=== PATIENT | female | born 1955 | race Caucasian/White ===

== ENCOUNTER 2023-02-21 08:33 | Emergency (ER) | payer MEDICARE, BC ==
[~2023-02-21] VITALS: Ht 165.1 cm; Wt 63.5 kg
[2023-02-21 09:05] VITALS: BP 152/90
[2023-02-21] MEDS ORDERED: LOSA50 PO (09:51)
[2023-02-21] MEDS ORDERED: HYDCHL25 PO (09:51)
== END 2023-02-21 11:03 | disposition home or self-care (01) ==
LOC: ER 08:33
DX: S01.411A Laceration without foreign body of right cheek and temporomandibular area, initial encounter (principal); W10.8XXA Fall (on) (from) other stairs and steps, initial encounter; Z88.5 Allergy status to narcotic agent; Z79.899 Other long term (current) drug therapy
CPT/HCPCS: 12013; 70150; 99283-25

== ENCOUNTER 2024-06-06 07:55 | Day surgery (SDC) | payer MEDICARE, BC ==
[~2024-06-06] VITALS: Ht 157.5 cm; Wt 64.5 kg
[2024-06-06] VITALS (14 sets, daily range): BP systolic 97–143; BP diastolic 62–98
[~2024-06-06 07:55] MED LIST: HYDCHL25 PO; LOSA50 PO; Lactated Ringer's 1,000 ML IV SCH
--- NOTE | 2024-06-06 08:27 | NUR ---
Ambulatory in Day Surgery. History, Chart, Medications and Allergies reviewed before start of procedure. Lungs clear T/O to Auscultation. Patient confirms NPO status and agrees with scheduled surgery. Pre-Op teaching done. Pt verbalizes understanding. Patient States Post-Procedure ride home has been arranged.
[2024-06-06] MEDS ORDERED: propofoL 20 ML IV ONE (08:55)
[2024-06-06] MEDS ORDERED: Midazolam HCl 1MG / ML 2ML Vial ONE (09:06)
--- NOTE | 2024-06-06 09:14 | NUR ---
06/06/24 0914 Mariano Lion CONFIRMED AND REVIEWED H&P, MEDCICATIONS, ALLERGIES, MEDICAL HISTORY, RESPIRATORY HISTORY, VITAL SIGNS, 3-LEAD EKG, CONSENTS, AND PHYSICIAN ORDERS. PATIENT CONFIRMS NPO STATUS AND AGREES WITH SCHEDULED PROCEDURE. MONITOR INTACT WITH CONTINUOUS PULSE OXIMETRY, CAPNOGRAPHY, 3-LEAD EKG, INTERMITTENT BP. SUPPLEMENTAL O2 TO BE TITRATED THROUGHOUT PROCEDURE TO MAINTAIN O2 SATURATION ABOVE 90%. PATIENT DETERMINED TO BE ASA APPROPRIATE FOR PROPOFOL SEDATION PRIOR TO START OF PROCEDURE BY DR. BLUE
--- NOTE | 2024-06-06 09:27 | NUR ---
REPORT RECEIVED FROM J CARLOS MIRANDA. VSS. PT ON RA. PT ABLE TO REPOSITION SELF IN BED. PT REQUESTING PO FLUIDS AND TOLERATING THEM WELL. PT DENIES PAIN, NAUSEA OR OTHER DISCOMFORTS.
--- NOTE | 2024-06-06 10:24 | NUR ---
0940 Patient up to Ambulate independently. Gait steady. VSS AND CONSISTENT WITH PT BASELINE. PT HAS NO COMPLAINTS AND VERBALIZES READINESS TO GO HOME. Discharge instructions reviewed with patient. Patient verbalizes understanding. Copy given to patient to take home. Patient States Post-Procedure ride home has been arranged. Discharged via wheelchair to private car for ride home. PT BELONGINGS RETURNED TO PT.
== END 2024-06-06 09:45 | disposition home or self-care (01) ==
LOC: ORSCMMR 07:55 → ORD 09:00 → ORSCMMR 09:45
PROVIDERS: Internal Medicine Gastroenterology
PROC: 0DBN8ZX Excision of Sigmoid Colon, Via Natural or Artificial Opening Endoscopic, Diagnostic (ICD-10-PCS; principal; 2024-06-06 09:00)
DX: Z12.11 Encounter for screening for malignant neoplasm of colon (principal); K63.5 Polyp of colon; I10 Essential (primary) hypertension; Z79.899 Other long term (current) drug therapy; M62.89 Other specified disorders of muscle
CPT/HCPCS: 88305; J2250; J2704; J7120

== ENCOUNTER 2024-12-31 07:31 | Day surgery (SDC) | payer MEDICARE, BC ==
[2024-12-31] VITALS (20 sets, daily range): BP systolic 74–161; BP diastolic 44–92
[~2024-12-31] VITALS: Ht 157.5 cm; Wt 66.0 kg
[~2024-12-31 07:31] MED LIST changes: +Ampicillin Sod/Sulbactam Sod 3 GM in NS 100 ML IV SCH; +Dexmedetomidine HCL 200 MCG / 2 ML ONE; +Triamcinolone A15 G3 TOP; +propofoL 100 ML IV ONE
[2024-12-31] MEDS ORDERED: Lidocaine 1%-Epineph 1:200000 30 ML SDV ONE (07:45)
[2024-12-31] MEDS ORDERED: Triple Antibiotic Ointment 30 gm ONE (07:45)
[2024-12-31] MEDS ORDERED: Lidocaine HCl 4% 5 ML SDA ONE (07:52)
[2024-12-31] MEDS ORDERED: Ondansetron HCl 2 MG / ML 2ML Vial ONE (07:58)
[2024-12-31] MEDS ORDERED: Ketorolac Tromethamine 30mg Vial ONE (07:58)
[2024-12-31] MEDS ORDERED: Metoclopramide HCl 5MG / ML 2ML Vial ONE (07:58)
[2024-12-31] MEDS ORDERED: Dexamethasone Sod Phos 10 MG/ML 1ML VIAL ONE (07:58)
[2024-12-31] MEDS ORDERED: HYDROmorphone HCl/Pf 1MG SYR ONE (08:02)
[2024-12-31] MEDS ORDERED: Albuterol 2.5 MG/3 ML VIAL INH PRN (08:05)
[2024-12-31] MEDS ORDERED: Acetaminophen 500 MG Tab PO SCH (08:05)
[2024-12-31] MEDS ORDERED: FentaNYL Citrate 50 MCG/ML 2 ML Injection IV PRN ×2 (08:05)
[2024-12-31] MEDS ORDERED: HYDROmorphone HCl/Pf 1MG SYR IV PRN ×2 (08:05→08:10)
[2024-12-31] MEDS ORDERED: ePHEDrine Sulfate 50 MG/ML 1ML Injection IV PRN (08:05)
[2024-12-31] MEDS ORDERED: Ondansetron HCl 2 MG / ML 2ML Vial IV PRN (08:10)
[2024-12-31] MEDS ORDERED: Rocuronium Bromide 10 MG/ML 5ML Injection IV ONE (08:11)
[2024-12-31] MEDS ORDERED: Sugammadex Sodium 200 MG/2ML SDV (100 MG/ML) ONE (08:11)
[2024-12-31] MEDS ORDERED: DiphenhydrAMINE HCl 50 MG/ML 1ML Vial ONE (08:12)
--- NOTE | 2024-12-31 08:12 | NUR ---
History, Chart, Medications and Allergies reviewed before start of procedure.Lungs clear T/O to Auscultation. Patient States Post-Procedure ride home has been arranged. Pre-Op teaching done. Pt verbalizes understanding. Patient confirms NPO status and agrees with scheduled surgery. RING AND EARRINGS REMOVED. PLACED IN BAG WITH PATIENT LABEL AND GIVEN TO PATIENT. SHE PLACED IN HER BELONGINGS BAG.
[2024-12-31] MEDS ORDERED: Acetaminophen 500 MG Tab PO ONE (08:55)
[2024-12-31] MEDS ORDERED: ePHEDrine Sulfate 50 MG/ML 1ML Injection ONE ×2 (09:15→09:17)
--- NOTE | 2024-12-31 09:15 | NUR ---
MEDICATION ERROR MADE, MISREAD ORDERS FOR DOSAGE, DR BAILEY NOTIFIED, DR BAILEY AT BEDSIDE [id number], PT ASYMPTOMATIC, BP REMAINS WITHIN ACCEPTABLE RANGE AT THIS TIME, WILL CONTINUE TO MONITOR IN PACU, NO FURTHER INTERVENTION REQUIRED AT THIS TIME PER DR BAILEY.
[2024-12-31] MEDS ORDERED: OxyCODONE 5 mg/Acetamin 325 mg TABLET PO PRN (09:20)
[2024-12-31] MEDS ORDERED: FentaNYL Citrate 50 MCG/ML 2 ML Injection ONE (10:02)
--- NOTE | 2024-12-31 11:19 | NUR ---
Discharge instructions reviewed with patient. Patient verbalizes understanding. Copy given to patient to take home. Satin pad removed, moderate drainage. Mariza pads provided. Denies headache. Patient States Post-Procedure ride home has been arranged. Discharged via wheelchair to private car for ride home.
== END 2024-12-31 11:29 | disposition home or self-care (01) ==
LOC: ORSCMMR 07:31 → ORD 10:30 → ORSCMMR 10:30
PROVIDERS: Surgery
PROC: 06BY0ZC Excision of Hemorrhoidal Plexus, Open Approach (ICD-10-PCS; principal; 2024-12-31 08:30)
DX: K64.2 Third degree hemorrhoids (principal); I10 Essential (primary) hypertension; Z87.891 Personal history of nicotine dependence; Z79.899 Other long term (current) drug therapy
CPT/HCPCS: 88304; A9270; J0295; J1100; J1171; J1200; J1885; J2003; J2405; J2704; J2765; J3010; J7120